=== PATIENT | male | born 1940 | race Caucasian/White ===

== ENCOUNTER 2017-04-18 21:00 | Observation (INO) | payer MEDICARE, BC ==
[2017-04-18 21:02] VITALS: BP 143/73; PULSE 69; RESP 16; TEMP 97.5; O2SAT 98
[2017-04-18 21:44] LABS: AUTOMATED NEUTROPHIL # 5.8 TH/MM3 (1.8-7.7); BASOPHIL # 0.1 TH/MM3 (0-0.2); EOSINOPHIL # 0.1 TH/MM3 (0-0.4); EOSINOPHIL % 1.5 % (0.0-4.0); HEMATOCRIT 42.9 % (39.0-51.0); HEMO FLAGS DIFF FINAL; LYMPH % 22.6 % (9.0-44.0); MEAN CELL VOLUME 87.4 FL (80.0-100.0); MEAN CORPUSCULAR HEMOGLOBIN 29.9 PG (27.0-34.0); MEAN CORPUSCULAR HGB CONC 34.2 % (32.0-36.0); MONO % 8.4 % (0.0-8.0); NEUT % 66.5 % (16.0-70.0); PLATELET COUNT 180 TH/MM3 (150-450); RED CELL DISTRIBUTION WIDTH 13.5 % (11.6-17.2); WHITE BLOOD COUNT 8.7 TH/MM3 (4.0-11.0)
[2017-04-18 21:45] VITALS: BP_SYST 129; BP_SYST 139; BP_DIAS 68; BP_DIAS 72; RESP 16; O2SAT 98
[2017-04-18] MEDS ORDERED: ASPIRIN 325 MG TAB PO ONE (21:45)
[2017-04-18] MEDS ORDERED: ATOR40TA16 PO (21:56)
[2017-04-18] MEDS ORDERED: METO25TA3 PO (21:56)
[2017-04-18] MEDS ORDERED: TERA5CAP3 PO (21:56)
[2017-04-18 22:12] LABS: ANION GAP 8 MEQ/L (5-15); BICARBONATE 26.8 MEQ/L (21.0-32.0); BLOOD UREA NITROGEN 24 MG/DL (7-18); CHLORIDE 102 MEQ/L (98-107); GLOMERULAR FILTRATION RATE 75 ML/MIN (>89); SODIUM (NA) 137 MEQ/L (136-145)
--- NOTE | 2017-04-18 22:12 | RADRPT ---
EXAM DATE/TIME: 04/18/2017 21:45 [place] COMPARISON: No previous studies available for comparison. INDICATIONS : Upper chest and neck pain. MEDICAL HISTORY : None. SURGICAL HISTORY : None. ENCOUNTER: Initial ACUITY: 2 days PAIN SCORE: 5/10 LOCATION: Bilateral chest FINDINGS: 2 AP erect portable views of the chest demonstrates the lungs to be symmetrically aerated without carla dence of mass, infiltrate or effusion. The cardiomediastinal contours are unremarkable. Osseous str uctures are intact. There is a fold right mid clavicular fracture. There are overlying electrocardiog birgit leads. CONCLUSION: No acute disease. Laz Aguilar MD on April 18, 2017 at 22:09 Board Certified Radiologist. This report was verified electronically.
[2017-04-18] MEDS ORDERED: AMLO5CAP3 PO (22:14)
--- NOTE | 2017-04-18 22:16 | PD ---
HPI Chief Complaint: Cardiac Complaint Time Seen by Provider: 22:11 Travel History International Travel<30 days: No Contact w/Intl Traveler<30days: No Traveled to known affect area: No History of Present Illness HPI 76-year-old male that presents to the ED for evaluation of jaw pain. Per patient his had left-sided jaw pain for the past day. Per patient is progressively getting worse. Patient has been taking nitros that seemed to improve the symptoms but comes back after an hour. Patient gets a headache from the nitros but otherwise he has no headache. He denies any actual chest pain. Per patient she's had symptoms like this and he follow-up with Dr. Terry who is his fork lift technician. He performed testing including echocardiogram as well as stress test that was abnormal. Patient had a CT coronary angiogram that apparently showed "blockage". Per patient he was immediately told to change his diet and stop all carbohydrates and he was started on statins as well as blood pressure medication. Patient was told that if anything changed he was to come here. Per patient this is why he is here. Per patient he doesn' t know if this is muscular or cardiac and he was told by Dr. Terry that if anything changed to come here. He denies any shortness of breath. He states compliance with his medications in his diet. Per patient he has never had any stents or heart catheters. No CABGs. No surgeries. No recent travel. No trauma. No fevers chills or sweats. No allergies to medication. Nothing seem to precipitate the symptoms. PFSH Past Medical History Diminished Hearing: No Genitourinary: Yes (BLADDER BLOCKAGES 2 YEARS AGO) Tetanus Vaccination: Unknown Influenza Vaccination: Yes Past Surgical History Abdominal Surgery: Yes (DIVERTICULUM CHILD) Appendectomy: Yes Social History Alcohol Use: Yes (occ) Tobacco Use: No Substance Use: No Allergies-Medications (Allergen,Severity, Reaction): Coded Allergies: No Known Allergies (Unverified , 04/18/17) Reported Meds & Prescriptions Reported Meds & Active Scripts Active Reported Amlodipine-Benazepril 5-20 Mg Cap 1 Cap PO DAILY Terazosin (Terazosin HCl) 5 Mg Cap 5 Mg PO HS Metoprolol Tartrate 25 Mg Tab 25 Mg PO BID Atorvastatin (Atorvastatin Calcium) 40 Mg Tab 40 Mg PO HS Review of Systems Except as stated in HPI: all other systems reviewed are Neg Physical Exam Narrative GENERAL: SKIN: Warm and dry. HEAD: Atraumatic. Normocephalic. EYES: Pupils equal and round. No scleral icterus. No injection or drainage. ENT: No nasal bleeding or discharge. Mucous membranes pink and moist. Tongue is midline. No uvula deviation. NECK: Trachea midline. No JVD. CARDIOVASCULAR: Regular rate and rhythm. No obvious murmurs, S3, S4. RESPIRATORY: No accessory muscle use. Clear to auscultation. Breath sounds equal bilaterally. GASTROINTESTINAL: Abdomen soft, non-tender, nondistended. Hepatic and splenic margins not palpable. MUSCULOSKELETAL: Extremities without clubbing, cyanosis, or edema. No obvious deformities. Full range of motion of the upper and lower extremities bilaterally. 2+ pulses bilaterally. NEUROLOGICAL: Awake and alert. No obvious cranial nerve deficits. Motor grossly within normal limits. Five out of 5 muscle strength in the arms and legs. Normal speech. PSYCHIATRIC: Appropriate mood and affect; insight and judgment normal. Data Data Last Documented VS Vital Signs Date Time Temp Pulse Resp B/P Pulse Ox O2 Delivery O2 Flow Rate FiO2 04/18/17 21:45 16 98 Room Air 04/18/17 21:45 129/68 139/72 04/18/17 21:02 97.5 69 Orders Electrocardiogram (04/18/17 21:21) Complete Blood Count With Diff (04/18/17 21:21) Basic Metabolic Panel (Bmp) (04/18/17 21:21) Ckmb (Isoenzyme) Profile (04/18/17 21:21) Troponin I (04/18/17 21:21) Iv Access Insert/Monitor (04/18/17 21:21) Chest, Single Ap (04/18/17 21:42) Ecg Monitoring (04/18/17 21:42) Bilateral Bp Monitoring (04/18/17 21:42) Iv Access Insert/Monitor (04/18/17 21:42) Oximetry (04/18/17 21:42) Aspirin (Aspirin) (04/18/17 21:45) Admit Order (Ed Use Only) (04/18/17 22:52) Nitroglycerin 2% Oint (Nitroglycerin 2% (04/18/17 23:00) Labs Laboratory Tests Test 04/18/17 21:30 White Blood Count 8.7 TH/MM3 Red Blood Count 4.90 MIL/MM3 Hemoglobin 14.7 GM/DL Hematocrit 42.9 % Mean Corpuscular Volume 87.4 FL Mean Corpuscular Hemoglobin 29.9 PG Mean Corpuscular Hemoglobin 34.2 % Concent Red Cell Distribution Width 13.5 % Platelet Count 180 TH/MM3 Mean Platelet Volume 9.5 FL Neutrophils (%) (Auto) 66.5 % Lymphocytes (%) (Auto) 22.6 % Monocytes (%) (Auto) 8.4 % Eosinophils (%) (Auto) 1.5 % Basophils (%) (Auto) 1.0 % Neutrophils # (Auto) 5.8 TH/MM3 Lymphocytes # (Auto) 2.0 TH/MM3 Monocytes # (Auto) 0.7 TH/MM3 Eosinophils # (Auto) 0.1 TH/MM3 Basophils # (Auto) 0.1 TH/MM3 CBC Comment DIFF FINAL Differential Comment Sodium Level 137 MEQ/L Potassium Level 4.0 MEQ/L Chloride Level 102 MEQ/L Carbon Dioxide Level 26.8 MEQ/L Anion Gap 8 MEQ/L Blood Urea Nitrogen 24 MG/DL Creatinine 0.97 MG/DL Estimat Glomerular Filtration 75 ML/MIN Rate Random Glucose 104 MG/DL Calcium Level 9.1 MG/DL Total Creatine Kinase 78 U/L Troponin I LESS THAN 0.02 NG/ML MDM Medical Decision Making Medical Screen Exam Complete: Yes Emergency Medical Condition: Yes Medical Record Reviewed: Yes Interpretation(s) CBC & BMP Diagram 04/18/17 21:30 Troponin and CKMB negative. Last Impressions Chest X-Ray 04/18/172141 Signed Impressions: Service Date/Time: Tuesday, April 18, 2017 21:45 - CONCLUSION: No acute disease. Laz Aguilar MD Differential Diagnosis Angina versus and STEMI versus STEMI versus gel pain versus unstable angina Narrative Course 76-year-old male that presents to the ED for evaluation of jaw pain. Patient was properly examined and was found to have signs and symptoms concerning for coronary artery disease. Patient already has a history of "blockage". Per patient he had the study done at [facility]. Unfortunately the PACs system appears to be down and I cannot access the study. This time I recommend labs and imaging. Patient is in agreement with this plan. Labs and imaging showed no sign of acute disease. Case discussed in my attending Dr. Terry who agrees with plan. She recommends admission to medicine for chest pain rule out as well as for consultation specifically to Dr. Terry to evaluate whether heart cath is needed. This was discussed with the patient and the family who is in agreement with this plan. Patient was admitted to [facility] after Wallace Muñoz agrees to admission. Procedures EKG Prior to Arrival: No Diagnosis Primary Impression: Chest pain in adult Admitting Information Admitting Physician Requests: Observation Lyndon Solis April 18, 2017 22:16
[2017-04-18 22:28] LABS: CREATINE KINASE 78 U/L (39-308)
[2017-04-18] MEDS ORDERED: NITROGLYCERIN 2% OINT 1 GM PACKET TOPICAL ONE (23:00)
[2017-04-18 23:12] VITALS: BP 114/55; PULSE 62; RESP 20; O2SAT 97
[2017-04-19 00:20] VITALS: BP 108/52; PULSE 55; RESP 20; O2SAT 99
[2017-04-19] MEDS ORDERED: SODIUM CHLORIDE 0.9% FLUSH 10 ML FLUSH IV FLUSH PRN (00:45)
[2017-04-19] MEDS ORDERED: ONDANSETRON HCL 4 MG/2 ML VIAL IVP PRN (00:45)
[2017-04-19] MEDS ORDERED: ACETAMINOPHEN 325 MG TAB PO PRN (00:45)
[2017-04-19] MEDS ORDERED: SENNOSIDES 8.6 MG TAB PO PRN (00:45)
[2017-04-19] MEDS ORDERED: NALOXONE HCL 0.4 MG/ML AMP IV PRN (00:45)
[2017-04-19 00:55] VITALS: O2SAT 98
[2017-04-19] MEDS ORDERED: HEPARIN SODIUM - SQ 10,000 UNITS/ML VIAL SQ SCH (01:00)
[2017-04-19 02:18] VITALS: BP 109/61; PULSE 59; RESP 18; TEMP 97.5; O2SAT 95
[2017-04-19 02:33] VITALS: PULSE 54
[2017-04-19] MEDS ORDERED: NITROGLYCERIN 2% OINT 1 GM PACKET TOPICAL SCH (06:00)
[2017-04-19 08:00] VITALS: BP 121/64; PULSE 69; RESP 16; TEMP 96.6; O2SAT 96
[2017-04-19 08:30] VITALS: O2SAT 95
[2017-04-19] MEDS ORDERED: ASPIRIN EC 325 MG TABEC PO SCH (09:00)
[2017-04-19] MEDS ORDERED: SODIUM CHLORIDE 0.9% FLUSH 10 ML FLUSH IV FLUSH SCH (09:00)
[2017-04-19] MEDS ORDERED: ATORVASTATIN 40 MG TAB PO SCH (09:00)
[2017-04-19] MEDS ORDERED: METOPROLOL TARTRATE 25 MG TAB PO SCH (09:00)
--- NOTE | 2017-04-19 09:12 | HHI.PR ---
Objective Objective Results - Vital Signs Date Time Temp Pulse Resp B/P Pulse Ox O2 Delivery O2 Flow Rate FiO2 04/19/17 08:00 96.6 69 16 121/64 96 04/19/17 02:33 54 04/19/17 02:18 97.5 59 18 109/61 95 04/19/17 00:55 98 04/19/17 00:20 55 20 108/52 99 Room Air 04/18/17 23:12 62 20 114/55 97 Room Air 04/18/17 21:45 16 98 Room Air 04/18/17 21:45 129/68 139/72 04/18/17 21:02 97.5 69 16 143/73 98 Room Air Result Diagram: 04/18/17212904/18/172129 Other Results Laboratory Tests Test 04/18/17 04/19/17 21:30 01:40 White Blood Count 8.7 Red Blood Count 4.90 Hemoglobin 14.7 Hematocrit 42.9 Mean Corpuscular Volume 87.4 Mean Corpuscular Hemoglobin 29.9 Mean Corpuscular Hemoglobin 34.2 Concent Red Cell Distribution Width 13.5 Platelet Count 180 Mean Platelet Volume 9.5 Neutrophils (%) (Auto) 66.5 Lymphocytes (%) (Auto) 22.6 Monocytes (%) (Auto) 8.4 Eosinophils (%) (Auto) 1.5 Basophils (%) (Auto) 1.0 Neutrophils # (Auto) 5.8 Lymphocytes # (Auto) 2.0 Monocytes # (Auto) 0.7 Eosinophils # (Auto) 0.1 Basophils # (Auto) 0.1 CBC Comment DIFF FINAL Differential Comment Sodium Level 137 Potassium Level 4.0 Chloride Level 102 Carbon Dioxide Level 26.8 Anion Gap 8 Blood Urea Nitrogen 24 Creatinine 0.97 Estimat Glomerular Filtration 75 Rate Random Glucose 104 Calcium Level 9.1 Total Creatine Kinase 78 Troponin I LESS THAN 0.02 LESS THAN 0.02 Physical Exam Physical Exam PHYSICAL EXAMINATION GENERAL: This is a well-developed, well-nourished male who appears to be in no acute distress. He is alert and awake, []. HEAD: Normocephalic without any lesion or mass noted. Facial features appear symmetric. EYES: Perrla, Normal eye movement, [] Icterus. [] Conj congestion. OROPHARYNGEAL: Oropharynx without erythema or edema. MOUTH/THROAT: Tongue midline []. Buccal mucosa is moist []. NECK: Supple. No nuchal rigidity or lymphadenopathy. Trachea midline without deviation. Thyroid not palpable, no bruits appreciated. CARDIAC: Regular rhythm, regular rate, S1 and S2 are heard. Murmur []; no gallops or rubs. LUNGS: Clear to auscultation bilaterally. [] wheeze, [] rhonchi or [] rale. No use of accessory muscles on inspiration or expiration. ABDOMEN: Soft, nontender, no organomegaly or masses. Bowel sounds are heard in all four quadrants. No rebound. No guarding. EXTREMITIES: [] edema. Pulses equal bilateral. [] cyanosis. NEUROLOGICAL: Patient mood and affect appropriate. Cranial nerves II through XII grossly intact. Muscle strength 5/5 in the upper and lower extremities bilaterally. Deep tendon reflexes are 2+ in the upper and lower extremities bilaterally. SKIN:Warm and moist PSYCH: Mood and affect appropriate A/P Assessment and Plan patient seen and examined Please refer to admission h & P for details jaw pain and shoulder pain, worse with movement. troponin and EKG neg Appreciate Cardiology input Discussed with Dr Terry in detail symptoms does not likely cardiac related ok to d/c home, medical management and outpatient follow up recommend CT C spine to r/o pathology likely arthritis, nerve impingement, but patient and son at bed aside refusing it for now. Would like to follow up with Their PCP Dr Cleaning and pursue outpatient work up. ok to d/c home discussed with patient, family at bed side, nursing staff and Dr Terry plan of care discussed with Preethi Hopkins MD April 19, 2017 09:12
--- NOTE | 2017-04-19 09:21 | MH ---
cc: AIDEE RAO DATE OF ADMISSION: 04/18/2017 DATE OF 1940 CHIEF COMPLAINT Jaw pain TRAVEL IN THE LAST 30 DAYS None HISTORY OF PRESENT ILLNESS This is a pleasant 76-year-old white male who came to the emergency room for evaluation of jaw pain that radiates down into his left shoulder. The patient states that he has had this pain for the past three months, but the pain has intensively gotten worse over the past month. He states that when he sits straight up and looks forward and does not move his neck, it does not hurt, but if he moves his head in the left or right direction, the pain does intensify and moves down into his shoulder. He states that the pain is fairly constant because he is constantly moving and it does interfere with sleep. He denies any chest pain. No shortness of breath. No recent fever, no recent antibiotic use. He did see wall worker, Dr. Terry back over the past few months and had a stress test and an echocardiogram and a CT coronary angiogram which did show blockage. He was treated medically and also was told that if the pain continued, to come back for further evaluation. The patient has no history of cardiac disease or stents. He has been very active and very healthy and was actually climbing on a roof yesterday doing some repair when the pain became unbearable. Of note, cardiology had placed him on a low carb diet. MEDICAL HISTORY 1. Mild constipation off and on for the past couple years. 2. Bladder blockages two years ago that were repaired. 3. History of diverticulum as a child. 4. Hyperlipidemia 5. Hypertension PAST SURGICAL HISTORY 1. Appendectomy 2. Repair of the bladder blockages with stenting. ALLERGIES No known allergies. MEDICATIONS 1. Amlodipine 2. Benazepril 3. Terazosin 4. Metoprolol 5. Atorvastatin SOCIAL HISTORY Occasional rare alcohol use. No tobacco, no illicit drugs. The patient is , currently lives at home with his and she is here with him at the hospital for support. REVIEW OF SYSTEMS Positives noted in the HPI, otherwise systems are negative. PHYSICAL EXAM VITAL SIGNS: temperature 96.6, pulse 69, respirations 16, blood pressure 121/64, O2 sat 96 on room air. GENERAL: A well-nourished, well-developed white male who does not look his stated age resting in his room sitting up in a chair. SKIN: [place], warm and dry. HEENT: Atraumatic, normocephalic. ALMA at 2. Mucous membranes are pink and moist. Tongue is midline. NECK: Supple. I feel no JVD and no nodules. CARDIOVASCULAR: S1-S2, no murmurs, rubs or gallops. RESPIRATORY: Essentially clear to auscultation. No wheezes, rales or rhonchi. GI: Abdomen is soft and nontender. Active bowel sounds. MUSCULOSKELETAL: He can move his extremities with purpose. He has excellent strength. NEUROLOGIC: He is alert and oriented x4, a good historian. Strength in his arms and legs are normal. His speech is normal and clear. PSYCHIATRIC: Appropriate mood and affect. DIAGNOSTIC DATA WBC count 8.7, RBC 4.9, hemoglobin 14.7, hematocrit 42.9, monocyte percentage auto is the only thing that is abnormal and it is 8.4. Diff is normal. Sodium is 137, potassium 4, chloride 102, carbon dioxide 26.8, amnion gap 8, BUN 24, creatinine 0.97, troponin is less than 0.02 x2. IMAGING STUDIES Show chest x-ray to have no acute disease. ASSESSMENT/PLAN 1. Jaw pain radiating into the shoulder, rule out cardiac event and coronary artery disease versus angina. 2. Acute kidney injury with mild dehydration. 3. Jaw pain radiating to the left shoulder possibly Musculoskeletal, rule out tendonitis or cervical degenerative disk disease. 4. History of constipation. PLAN Our plan is to rule out cardiac event. Cardiology will see him for their expert opinion. He is placed in observation. Vital signs are q. Four. Activities, out of bed with assistance. We will monitor him on telemetry, place him on a heart healthy diet. Reconcile his medications. O2 p.r.n. DVT prophylaxis with heparin. Nitroglycerin ointment was placed on him in the ER. We will monitor his blood pressure, his labs and get a CT cervical scan to rule out degenerative disk disease. The patient is full code, full aggressive care and we will follow. Dictated by DAVID Gallego MD SHANE Burroughs/NESSA /8:30 AM /9:21 AM
--- NOTE | 2017-04-19 09:47 | MB ---
cc: KIAH AG M.D. DATE OF CONSULTATION: 04/19/2017 REASON FOR CONSULTATION Known coronary artery disease and left neck pain. HISTORY OF PRESENT ILLNESS Stephen Yeung is a very pleasant 76-year-old man who I have extensively evaluated who came in with left neck pain. The patient initially saw me for pain in the left side of his jaw. I was concerned given that he had multiple risk factors including hypertension, obesity and metabolic syndrome. He had a stress test where there was no production of the jaw pain and there were some nonspecific EKG changes. A nuclear stress test did not show any major ischemia and I went one step further with a coronary CT angiogram. The coronary CT angiogram demonstrates that he has three-vessel coronary artery disease. Specifically his coronary circulation is left dominant. He has extensive atherosclerotic disease throughout the LAD with suggestion of hemodynamically significant lesions in the mid LAD. The circumflex artery shows diffuse calcified atherosclerotic plaque with some possible distal significant lesions as well. The right coronary artery was atretic with significant stenosis at the ostium and proximal segments. At that time we initiated medical therapy with aspirin, atorvastatin, beta richard and sublingual nitroglycerin. He comes in now with recurrence of pain. At this time the pain is different. It is more in the left shoulder. He can reproduce it by turning his head to the right. He can reproduce it by scrunching his left shoulder. It is also somewhat reproduced by trying to swallow. He does not have any typical exertional type symptoms. He did say his symptoms got better after nitroglycerin but on further questioning it takes five minutes after the nitro before he saw improvement, which to me did not suggest it was very responsive to nitroglycerin. I was planning to do a cardiac catheterization this morning. I have now cancelled that in view of the fact the discomfort he is having is clearly musculoskeletal. PAST MEDICAL HISTORY 1. Arthritis. 2. First-degree AV block. 3. Benign prostatic hypertrophy. 4. Diverticulosis. 5. Essential hypertension. 6. Hyperlipidemia. 7. Impetigo. 8. Metabolic syndrome with obesity. 9. Prediabetes. 10.Hypertension. 11.HDL cholesterol 40. 12.Migraine headaches. 13.Obesity. PAST SURGICAL HISTORY Tonsillectomy. MEDICATIONS 1. Amlodipine. 2. Benazepril 5/20, daily. 3. Aspirin 325, daily. 4. Metoprolol 50, b.i.d. 5. Atorvastatin 40 mg daily. 6. Ranitidine 150 mg p.r.n. 7. Saw palmetto daily. 8. Terazosin 5 mg at bedtime. ALLERGIES None known. FAMILY HISTORY Positive for myocardial infarction in maternal grandfather and maternal grandmother. SOCIAL HISTORY He drinks alcohol only occasionally. He stays physically active. He exercises routinely. He is . He has never smoked. He is retired. REVIEW OF SYSTEMS Notable for dry eyes, prior urinary symptoms improved with medications, arthritis in his right hip. PHYSICAL EXAMINATION GENERAL: An obese, very pleasant white male in no acute distress. VITAL SIGNS: Charted. HEENT: Unremarkable. NECK: No JVD. No bruits. CHEST: Clear to auscultation. CARDIAC: S1, S2. Regular rate and rhythm without murmurs or gallops. ABDOMEN: Soft, nontender. No masses or hepatosplenomegaly. EXTREMITIES: No clubbing, cyanosis or edema. Pulses are intact. EKG EKG demonstrates sinus rhythm with first-degree AV block. There are no ischemic changes. LABORATORY Troponin levels are normal. IMAGING Chest x-ray shows no acute disease. Dr. Tejeda ordered a neck CT but the patient declined, wanting to have this done as an outpatient. IMPRESSION/PLAN This is a 76-year-old man with known cardiac risk factors who we know objectively has three-vessel coronary disease based on a coronary CT angiogram. His current symptoms, however, are clearly not cardiac in origin. This strongly suggests a problem with his neck, most likely cervical arthritis or cervical stenosis. I cannot really elicit any symptoms that sound like angina and there is no objective evidence for ischemia. Therefore I recommend continuation of medical therapy and its okay for him to go home. I have given him a prescription referral to a physical therapist named Terry Mcpherson at [facility]. I have told him he should follow-up with Dr. Cleaning and probably should have some type of imaging test on his neck to rule out any odd or unexpected findings that could be causing his pain. I did explain to him that if we ever get to a point where we think he is having coronary ischemia then I think he is definitely a candidate for coronary angiography and possible revascularization, but I cannot say that there are findings that indicate we should do that at this time. All questions were answered. This was in the presence of his adopted son and , and all questions were answered. MD JIM Lea/SURAJ /9:17 AM /9:27 AM
--- NOTE | 2017-04-19 15:58 | HHI.DS ---
Discharge Summary Admission Date April 18, 2017 at 22:54 Discharge Date: April 19, 2017 Admitting Diagnosis chest pain, r/o ACS CBC/BMP: 04/18/17212904/18/172129 Significant Findings Laboratory Tests Test 04/18/17 04/19/17 21:30 01:40 Monocytes (%) (Auto) 8.4 % (0.0-8.0) Blood Urea Nitrogen 24 MG/DL (7-18) Estimat Glomerular Filtration 75 ML/MIN (>89) Rate Troponin I LESS THAN 0.02 LESS THAN 0.02 NG/ML NG/ML (0.02-0.05) (0.02-0.05) Imaging Last Impressions Chest X-Ray 04/18/172141 Signed Impressions: Service Date/Time: Tuesday, April 18, 2017 21:45 - CONCLUSION: No acute disease. Laz Aguilar MD Hospital Course seen per cardiology. jaw pain is noncardiac. pt. discharged Pt Condition on Discharge: Stable Discharge Disposition: Discharge Home Discharge Instructions DIET: Follow Instructions for: Heart Healthy Diet Activities you can perform: Regular-No Restrictions Follow up Referrals: PCP Follow-up Physical Therapy Continued Medications: Amlodipine-Benazepril (Amlodipine-Benazepril) 5-20 Mg Cap 1 CAP PO DAILY Blood Pressure Management #30 Ref 0 CAP Atorvastatin (Atorvastatin) 40 Mg Tab 40 MG PO HS Cholesterol Management #30 Ref 0 TAB Metoprolol Tartrate (Metoprolol Tartrate) 25 Mg Tab 25 MG PO BID #60 Ref 0 TAB Terazosin (Terazosin) 5 Mg Cap 5 MG PO HS #30 Ref 0 CAP Tana Zhu April 19, 2017 15:58
--- NOTE | 2017-04-19 19:27 | EKG ---
Date Performed: 04/19/2017 Time Performed: 06:15:31 PTAGE: 76 years EKG: Sinus rhythm WITH SINUS ARRHYTHMIA WITH FIRST DEGREE AV BLOCK ABNORMAL ECG Compared to prior tracing no significa nt change DOCTOR: Jaciel Walsh Interpretating Date/Time 04/19/2017 19:25:05
--- NOTE | 2017-04-19 19:36 | EKG ---
Date Performed: 04/18/2017 Time Performed: 21:21:54 PTAGE: 76 years EKG: Sinus rhythm WITH FIRST DEGREE AV BLOCK ABNORMAL ECG NO PREVIOUS TRACING DOCTOR: Jaciel Walsh Interpretating Date/Time 04/19/2017 19:35:28
== END 2017-04-19 10:57 | disposition home or self-care (01) ==
LOC: NEPE 21:00 → NEDA 22:54 → NEPHCDU 04-19 02:01
PROVIDERS: ADMIT Internal Medicine; ATTEND Internal Medicine
DX: R68.84 Jaw pain (principal); I25.10 Atherosclerotic heart disease of native coronary artery without angina pectoris; R07.9 Chest pain, unspecified; N17.9 Acute kidney failure, unspecified; E86.0 Dehydration; M19.90 Unspecified osteoarthritis, unspecified site; N40.0 Benign prostatic hyperplasia without lower urinary tract symptoms; I10 Essential (primary) hypertension; E78.5 Hyperlipidemia, unspecified; E66.9 Obesity, unspecified; Z82.49 Family history of ischemic heart disease and other diseases of the circulatory system; Z79.899 Other long term (current) drug therapy; K59.00 Constipation, unspecified; E88.81 Metabolic syndrome and other insulin resistance; I44.0 Atrioventricular block, first degree; K57.90 Diverticulosis of intestine, part unspecified, without perforation or abscess without bleeding
CPT/HCPCS: 71010; 80048; 82550; 84484; 85025; 93005; 96372; 99285; G0378; J1644

== ENCOUNTER → 2017-12-12 | Outpatient (CLI) | payer MEDICARE, BC ==
[2017-12-12 10:53] LABS: AUTOMATED NEUTROPHIL # 4.4 TH/MM3 (1.8-7.7); BASOPHIL # 0.1 TH/MM3 (0-0.2); EOSINOPHIL # 0.1 TH/MM3 (0-0.4); EOSINOPHIL % 2.1 % (0.0-4.0); HEMATOCRIT 43.9 % (39.0-51.0); HEMO FLAGS DIFF FINAL; HEMOGLOBIN 14.7 GM/DL (13.0-17.0); LYMPH % 19.8 % (9.0-44.0); LYMPHOCYTE # 1.3 TH/MM3 (1.0-4.8); MEAN CELL VOLUME 92.3 FL (80.0-100.0); MEAN CORPUSCULAR HEMOGLOBIN 30.9 PG (27.0-34.0); MEAN CORPUSCULAR HGB CONC 33.5 % (32.0-36.0); MEAN PLATELET VOLUME 9.4 FL (7.0-11.0); MONOCYTE # 0.5 TH/MM3 (0-0.9); NEUT % 69.1 % (16.0-70.0); PLATELET COUNT 157 TH/MM3 (150-450); RED BLOOD COUNT 4.76 MIL/MM3 (4.50-5.90); RED CELL DISTRIBUTION WIDTH 14.3 % (11.6-17.2); WHITE BLOOD COUNT 6.3 TH/MM3 (4.0-11.0)
[2017-12-12 11:02] LABS: APTT (PATIENT) 27.5 SEC (24.3-30.1); INTERNATIONAL NORMALIZED RATIO 1.1 RATIO; PROTHROMBIN TIME - PATIENT 11.4 SEC (9.8-11.6)
[2017-12-12 11:05] LABS: BILIRUBIN, URINE NEG (NEG); BLOOD, URINE NEG (NEG); COMMENT (UR) CULT NOT INDICATED; CULTURE IF INDICATED CULT NOT INDICATED; GLUCOSE,URINE NEG (NEG); KETONE, URINE NEG (NEG); MUCUS URINE FEW /lpf (OCC); NITRITE,URINE NEG (NEG); SQUAMOUS EPITHELIAL CELL URINE <1 /hpf (0-5); URINE COLOR YELLOW (YELLW/STRAW); URINE LEUKOCYTE ESTERASE NEG (NEG)
[2017-12-12 11:16] LABS: ALBUMIN 4.1 GM/DL (3.4-5.0); ALT (GPT) 22 U/L (12-78); ANION GAP 6 MEQ/L (5-15); AST (GOT) 11 U/L (15-37); BICARBONATE 29.4 MEQ/L (21.0-32.0); BLOOD UREA NITROGEN 17 MG/DL (7-18); CALCIUM 9.7 MG/DL (8.5-10.1); CHLORIDE 104 MEQ/L (98-107); CREATININE 0.85 MG/DL (0.60-1.30); GLOMERULAR FILTRATION RATE 87 ML/MIN (>89); GLUCOSE,FASTING 115 MG/DL (74-99); POTASSIUM 4.1 MEQ/L (3.5-5.1); SODIUM (NA) 139 MEQ/L (136-145)
[2017-12-12 11:19] LABS: ALKALINE PHOSPHATASE 83 U/L (45-117); TOTAL BILIRUBIN ADULT 0.8 MG/DL (0.2-1.0); TOTAL PROTEIN 7.4 GM/DL (6.4-8.2)
[2017-12-12 11:42] LABS: WESTERGREN SEDIMENTATION RATE 3 mm/hr (0-20)
== END ==
LOC: CPRE 09:42
DX: Z01.810 Encounter for preprocedural cardiovascular examination (principal); Z01.811 Encounter for preprocedural respiratory examination; Z01.812 Encounter for preprocedural laboratory examination; M79.609 Pain in unspecified limb; M25.50 Pain in unspecified joint; M16.11 Unilateral primary osteoarthritis, right hip; R94.31 Abnormal electrocardiogram [ECG] [EKG]; Z96.60 Presence of unspecified orthopedic joint implant
CPT/HCPCS: 36415; 71046; 80053; 81001; 85025; 85610; 85652; 85730; 93005

== ENCOUNTER 2017-12-27 06:35 | Inpatient (IN) | payer MEDICARE, BC ==
[~2017-12-27] VITALS: Ht 193 cm; Wt 100.5 kg
[~2017-12-27 06:35] MED LIST: AMLO5CAP3 PO; ASPI1TAB57 PO; ATOR40TA16 PO; METO25TA3 PO; SAW500CA PO; TERA5CAP3 PO
[2017-12-27] MEDS ORDERED: SODIUM CHLORID 0.9% 500 ML IV PRN (07:15)
[2017-12-27] MEDS ORDERED: LACTATED RINGER'S 1000 ML IV PRN (07:15)
[2017-12-27] MEDS ORDERED: VANCOMYCIN 1000 MG/NS 250 ML (for <70 kg) IV SCH ×2 (07:15)
[2017-12-27] MEDS ORDERED: METOPROLOL TARTRATE 25 MG TAB PO PRN (07:15)
[2017-12-27] MEDS ORDERED: POVIDONE IODINE 7.5% SCRUB 118 ML BOTTLE TOPICAL SCH (07:15)
[2017-12-27] MEDS ORDERED: ceFAZolin 2 GM PREMIX 50 ML IV SCH (07:15)
[2017-12-27] MEDS ORDERED: POVIDONE IODINE 5% (ANTISEPSIS KIT) 4 APPLICATIONS EACH NARE PRN (07:15)
[2017-12-27] MEDS ORDERED: CHLORHEXIDINE GLUCONATE 2 % 1 PACK (2 CLOTHS) TOPICAL PRN (07:15)
[2017-12-27] MEDS ORDERED: DEXAMETHASONE SOD PHOS 20 MG/5 ML VIAL IV PUSH SCH (07:30)
[2017-12-27] MEDS ORDERED: VANCOMYCIN 1 GM/200 ML INJ 200 ML IV ONE (07:51)
[2017-12-27] MEDS ORDERED: AMLO5CAP3 PO (09:23)
[2017-12-27] MEDS ORDERED: TRANEXAMIC ACID INJ 1,005 MG in SODIUM CHLORIDE 0.9% INJ 100 ML IV SCH ×2 (10:00→15:00)
[2017-12-27] MEDS ORDERED: GENTAMICIN SULFATE 80 MG/2 ML VIAL ONE (10:37)
[2017-12-27] MEDS ORDERED: PROPOFOL 500 MG/50 ML INJ 50 ML ONE (10:48)
[2017-12-27] MEDS ORDERED: EXPAREL PERI-ARTICULAR INJECTION (TOTAL VOL. 60 ML) P-ARTICULR SCH ×2 (11:30)
--- NOTE | 2017-12-27 13:17 | PD.OP ---
cc: Antione Sampson MD Operative Report Date of Surgery: Dec 27, 2017 Preoperative Diagnosis: Right hip severe osteoarthritis Postoperative Diagnosis: Same Procedure: Right total hip arthroplasty Anesthesia: Spinal Surgeon: Antione Sampson Hospice Art Therapist(s): DAVID Galdamez The surgical procedure was assisted by my Advanced Registered Nurse Practitioner. My ENTERTAINER OR VARIETY ARTIST presence was necessary throughout this case for the manipulation and positioning of the surgical extremity. My ENTERTAINER OR VARIETY ARTIST was assisting me throughout the duration of this procedure. The skill set of an Advance Registered Nurse Practitioner was medically necessary to complete this procedure. During the surgical case, the plating technician was working at the back table and the Advance Registered Nurse Practitioner was directly assisting me. Operation and Findings: IMPLANT DESCRIPTION: 1. [place] Gription Cup, acetabular size 60. 2. [place] AltrX polyethylene, neutral. 4. [place] femoral stem size 13, no collar, standard offset. 5. Femoral head/neck metal, 36, +1.5. ESTIMATED BLOOD LOSS: 300 cc. JUSTIFICATION FOR PROCEDURE: The patient has end-stage osteoarthritis to the hip. There is an attached conservative measures pathway form in the chart that describes the nonoperative measures that were undertaken prior to consideration of surgical management. The patient understood the risks and benefits of surgical management. See my office notes for further details. PROCEDURE: The patient was brought back to the operative theatre. Adequate anesthesia was obtained. The patient received intravenous vancomycin and Ancef. The patient was carefully placed on the operative table. The lower extremity was prepped and draped in the usual sterile fashion. Fluoroscopic images were obtained. We made a standard anterior incision over the hip. We dissected through the TFL fascia, exposing the anterior capsule. Arthrotomy was performed in a T-shaped fashion. The capsule was tagged with a #2 FiberWire. End-stage arthritis was identified. Osteotomy was performed through the femoral neck exposing the acetabulum. Remnants of the labrum were resected and osteophytes were removed. We sequentially reamed the acetabulum. We trialed the hip and placed the final cup into position. This was done under fluoroscopic guidance to obtain the appropriate inclination and anteversion. A manhole cover was placed into the acetabular component. We then placed the final polyethylene into position and confirmed that it was well seated. Capsular attachments on the calcar and the inner aspect of the greater trochanter were resected. On the proximal aspect of the femur we used a rongeur , box osteotome, canal finder, sequential broaches and lateralizing rasp. We calcar planed the proximal femur. Then thoroughly irrigated the wound. We trialed the hip with the appropriate size stem. We placed the final stem in to position and trialed again. The hip was stable while it was externally rotated 70 degrees when the leg was lowered to the floor. The final head was applied, and final fluoroscopic images were obtained. The wound was thoroughly irrigated again. Interarticular injection of liposomal bupivacaine was given. The capsule was closed with #2 FiberWire and #1 Vicryl. The deep fascia was closed with a #2 Stratafix, followed by 2-0 Vicryl in the skin and Dermabond dressing. Postop plan is to weight-bear as tolerated. DVT prophylaxis will be performed with Tsering, CLARI winston, early mobilization, and Lovenox followed by aspirin. Antione Sampson MD Dec 27, 2017 13:17
[2017-12-27] MEDS ORDERED: DO NOT ADM ANY ANTICOAGULANT DRUGS PRN (13:44)
[2017-12-27] MEDS ORDERED: MIDAZOLAM HCL 2 MG/2 ML VIAL ONE (13:48)
--- NOTE | 2017-12-27 13:51 | HHI.DCPOC ---
Discharge Care Plan Diagnosis: (1) Osteoarthritis of right hip (2) Status post total hip replacement, right Your Health Problems Are: Difficulty with ADL Goals to Promote Your Health * To prevent worsening of your condition and complications * To maintain your health at the optimal level Directions to Meet Your Goals Take your medications as prescribed Follow your dietary instruction Follow activity as directed Keep your appointments as scheduled Take your immunizations and boosters as scheduled If your symptoms worsen call your PCP, if no PCP go to Urgent Care Center or Emergency Room Smoking is Dangerous to Your Health. Avoid second hand smoke Call the 24-hour hour crisis hotline for domestic abuse at Anders Medrano Dec 27, 2017 13:51
--- NOTE | 2017-12-27 13:52 | HHI.FF ---
Face to Face Verification Diagnosis: (1) Status post total hip replacement, right (2) Osteoarthritis of right hip Physical Therapy Gait training, Transfer training, bed to chair Hip: Total hip Right LE Weight Bearing: WB as tolerated Right LE Range of Motion: Active ROM Nursing Nursing: Jennifer alvarez Dressing Changes: Do not change dressing Additional Instructions First dressing change in the office I have seen patient Stephen Izaguirre on 12/27/17. My clinical findings support the need for the requested home health care services because: Limited ability to care for self High risk of falls I certify that my clinical findings support that this patient is homebound because: Post-op weakness Unsteady gait/balance Anders Medrano Dec 27, 2017 13:52
[2017-12-27] MEDS ORDERED: WALKER WHEELS/F1 MIS (13:54)
[2017-12-27] MEDS ORDERED: COMMODE 3-IN-11 MIS (13:54)
[2017-12-27] MEDS ORDERED: *morphine SULFATE 4 MG/ML PERIprocedure ONLY ONE (14:07)
[2017-12-27] MEDS ORDERED: ALUMINUM/MAGNESIUM/SIMETH 30 ML CUP PO PRN (14:15)
[2017-12-27] MEDS ORDERED: ACETAMINOPHEN/HYDROcodone 325 MG/5 MG TAB PO PRN (14:15)
[2017-12-27] MEDS ORDERED: diphenhydrAMINE HCL 50 MG/ML VIAL IV PUSH PRN (14:15)
[2017-12-27] MEDS ORDERED: NALOXONE HCL 0.4 MG/ML AMP IV PUSH PRN (14:15)
[2017-12-27] MEDS ORDERED: MORPHINE SULFATE 2 MG/ML INJ IV PUSH PRN (14:15)
--- NOTE | 2017-12-27 14:20 | RADRPT ---
EXAM DATE/TIME: 12/27/2017 11:58 [facility] COMPARISON: No previous studies available for comparison. INDICATIONS : Right total hip replacement. MEDICAL HISTORY : None. SURGICAL HISTORY : None. ENCOUNTER: Initial ACUITY: 1 day PAIN SCORE: Non-responsive. LOCATION: Right hip CONCLUSION: Fluoroscopic images during right hip arthroplasty. Luis Miguel Kauffman MD on December 27, 2017 at 14:17 Board Certified Radiologist. This report was verified electronically.
[2017-12-27] MEDS ORDERED: MAGNESIUM HYDROXIDE SUSP 30 ML CUP PO PRN (14:30)
[2017-12-27] MEDS ORDERED: ONDANSETRON HCL 4 MG/2 ML VIAL IVP PRN (14:30)
[2017-12-27] MEDS ORDERED: BISACODYL 10 MG SUPP RECTAL PRN (14:30)
[2017-12-27] MEDS ORDERED: Post-op Orders (for Pharmacy) XX ONE (15:00)
[2017-12-27] MEDS: SODIUM CHLOR 0.9% 1000 ML INJ 1,000 ML IV SCH ×2 (15:25→20:27)
--- NOTE | 2017-12-27 15:42 | RADRPT ---
EXAM DATE/TIME: 12/27/2017 13:53 [facility] COMPARISON: No previous studies available for comparison. INDICATIONS : Post op right total hip replacement. MEDICAL HISTORY : None. SURGICAL HISTORY : None. ENCOUNTER: Initial ACUITY: 1 day PAIN SCORE: 5/10 LOCATION: Right Hip FINDINGS: AP and crosstable lateral views of the right hip were obtained as well as an AP view the pelvis. The patient is status post right hip arthroplasty. The femoral and acetabular components are intact and i n normal alignment. There is lateral soft tissue swelling and gas. Degenerative changes are noted in the left hip with sclerosis and spurring. There are degenerative disc changes in the lower lumbar spi ne. CONCLUSION: Expected postoperative changes status post right hip arthroplasty. Laz Aguilar MD on December 27, 2017 at 15:39 Board Certified Radiologist. This report was verified electronically.
[2017-12-27 16:34] VITALS: BP 140/70; PULSE 83; RESP 18; TEMP 96; O2SAT 96
[2017-12-27] MEDS: ACETAMINOPHEN/HYDROcodone 325 MG/5 MG TAB PO PRN (16:46)
[2017-12-27 20:09] VITALS: BP 162/80; PULSE 79; RESP 18; TEMP 95.7; O2SAT 96
[2017-12-27] MEDS: METOPROLOL TARTRATE 25 MG TAB PO SCH (20:22)
[2017-12-27] MEDS ORDERED: TERAZOSIN HCL 5 MG CAP PO SCH (21:00)
[2017-12-27] MEDS ORDERED: ATORVASTATIN 40 MG TAB PO SCH (21:00)
[2017-12-27] MEDS ORDERED: ZOLPIDEM TARTRATE 5 MG TAB PO PRN (21:00)
[2017-12-27] MEDS ORDERED: amLODIPine BESYLATE 5 MG TAB PO SCH (21:00)
[2017-12-27] MEDS ORDERED: LISINOPRIL 20 MG TAB PO SCH (21:00)
[2017-12-28 01:23] VITALS: BP 132/67; PULSE 80; RESP 18; TEMP 95.5; O2SAT 95
[2017-12-28 04:26] LABS: HEMATOCRIT 36.2 % (39.0-51.0); HEMOGLOBIN 12.3 GM/DL (13.0-17.0); MEAN CELL VOLUME 89.4 FL (80.0-100.0); MEAN CORPUSCULAR HEMOGLOBIN 30.5 PG (27.0-34.0); MEAN CORPUSCULAR HGB CONC 34.1 % (32.0-36.0); MEAN PLATELET VOLUME 9.2 FL (7.0-11.0); PLATELET COUNT 149 TH/MM3 (150-450); RED BLOOD COUNT 4.05 MIL/MM3 (4.50-5.90); RED CELL DISTRIBUTION WIDTH 13.9 % (11.6-17.2); WHITE BLOOD COUNT 11.8 TH/MM3 (4.0-11.0)
[2017-12-28 04:41] VITALS: BP 105/61; PULSE 81; RESP 18; TEMP 95.4; O2SAT 94
[2017-12-28] MEDS: SODIUM CHLOR 0.9% 1000 ML INJ 1,000 ML IV SCH (04:41)
[2017-12-28] MEDS ORDERED: DEXAMETHASONE SOD PHOS 20 MG/5 ML VIAL IV ONE (07:45)
[2017-12-28 07:49] VITALS: BP 119/63; PULSE 77; RESP 16; TEMP 97.9; O2SAT 97
[2017-12-28] MEDS: METOPROLOL TARTRATE 25 MG TAB PO SCH (09:51)
[2017-12-28 11:34] VITALS: BP 104/52; PULSE 76; RESP 16; TEMP 97.3; O2SAT 98
[2017-12-28] MEDS ORDERED: ENOXAPARIN SODIUM 40 MG/0.4 ML SYRINGE SQ SCH (12:00)
[2017-12-28] MEDS: ACETAMINOPHEN/HYDROcodone 325 MG/5 MG TAB PO PRN (12:10)
--- NOTE | 2017-12-28 12:53 | PD.ORT.PN ---
Subjective Post Op Day #: 1 Subjective Remarks Patient is OOB in chair with minimal pain to the right hip. Patient has been ambulatory and states he is ready for discharge home with home health. Objective Vitals Vital Signs Date Time Temp Pulse Resp B/P (MAP) Pulse Ox O2 Delivery O2 Flow Rate FiO2 12/28/17 11:34 97.3 76 16 104/52 (69) 98 12/28/17 07:49 97.9 77 16 119/63 (81) 97 12/28/17 04:41 95.4 81 18 105/61 (76) 94 12/28/17 01:23 95.5 80 18 132/67 (88) 95 12/27/17 20:09 95.7 79 18 162/80 (107) 96 12/27/17 16:34 96.0 83 18 140/70 (93) 96 12/27/17 16:00 68 17 139/63 (88) 97 Room Air 12/27/17 15:30 66 18 134/68 (90) 97 Room Air 12/27/17 14:45 98.2 69 18 140/61 (87) 98 Room Air 12/27/17 14:30 66 17 140/67 (91) 98 Room Air 12/27/17 14:15 71 16 141/67 (91) 98 Room Air 12/27/17 14:00 67 15 133/62 (85) 99 Nasal Cannula 2 12/27/17 13:45 72 14 128/63 (84) 98 Nasal Cannula 2 12/27/17 13:40 97.3 70 14 112/59 (76) 97 Nasal Cannula 2 I/O 12/27/17 12/27/17 12/27/17 12/28/17 12/28/17 12/28/17 07:00 15:00 23:00 07:00 15:00 23:00 Intake Total 1700 ml 100 ml 1200 ml Output Total 200 ml 500 ml Balance 1500 ml 100 ml 700 ml Intake IV Total 1700 ml 100 ml 1200 ml Output Urine Total 500 ml Estimated Blood Loss 200 ml # Voids 2 1 Result Diagram: 12/28/17 0340 Imaging Last 24 hours Impressions Hip and Pelvis X-Ray 12/27/17 1314 Signed Impressions: Service Date/Time: Wednesday, December 27, 2017 13:53 - CONCLUSION: Expected postoperative changes status post right hip arthroplasty. Laz Aguilar MD Procedures Right EMMANUEL Objective Remarks The patient's dressing is C/D/I. EHL/TA/G intact. 2+ pedal pulse. Calf is soft and nontender. + SILT. Assessment & Plan Ortho Post Op Day #: 1 Problem List: Assessment and Plan POD #1: Right EMMANUEL 1. WBAT RLE 2. Lovenox followed by ASA for DVT prophylaxis 3. Ice to the right hip PRN 4. Stable for discharge home with home health today 5. F/U in the office with Dr. Sampson and DAVID Chicas as previously scheduled. Anders Medrano Dec 28, 2017 12:53
--- NOTE | 2017-12-28 18:06 | HHI.DS ---
Discharge Summary Admission Date Dec 27, 2017 at 06:35 Discharge Date: Dec 28, 2017 Admitting Diagnosis OA of the right hip Status post total hip replacement, right Diagnosis: (1) Osteoarthritis of right hip ICD Codes: M16.11 - Unilateral primary osteoarthritis, right hip (2) Status post total hip replacement, right ICD Codes: Z96.641 - Presence of right artificial hip joint Procedures Right EMMANUEL Brief History This is a 77 year old male patient with severe OA of the right hip. CBC/BMP: 12/28/17 0340 Significant Findings Laboratory Tests Test 12/28/17 03:40 White Blood Count 11.8 TH/MM3 (4.0-11.0) Red Blood Count 4.05 MIL/MM3 (4.50-5.90) Hemoglobin 12.3 GM/DL (13.0-17.0) Hematocrit 36.2 % (39.0-51.0) Platelet Count 149 TH/MM3 (150-450) PE at Discharge The patient's dressing is C/D/I. EHL/TA/G intact. 2+ pedal pulse. Calf is soft and nontender. + SILT. Hospital Course The patient was admitted to the hospital for severe OA of the right hip to have a right EMMANUEL. The patient's surgery went well without complication. The patient is WBAT. The patient is on Lovenox followed by ASA for DVT prophylaxis. The patient is on a regular diet. The patient was discharged home with home health and will f/u in the office with Dr. Sampson or DAVID Chicas as previously scheduled. Pt Condition on Discharge: Stable Discharge Disposition: Disch w/ Home Health Serv Discharge Instructions Diet Instructions: As Tolerated, No Restrictions Activities You Can Perform: Weight Bearing as [place] Activities to Avoid: Strenuous Activity Follow up Referrals: Orthopedics with Antione Sampson MD New Medications: Commode 3-in-1 (Commode 3-in-1) 1 Mis Mis EA .XX DIRECTED, #1 0 Refills Walker with Front Wheels (Walker with Front Wheels) 1 Mis Mis EA .XX DIRECTED, #1 0 Refills Continued Medications: Amlodipine Besylate/Benazepril (Amlodipine-Benazepril 5-20 mg) 5 Mg-20 Mg Capsule 1 CAP PO HS Atorvastatin (Atorvastatin) 40 Mg Tab 40 MG PO HS for Cholesterol Management, #30 TAB 0 Refills Metoprolol Tartrate (Metoprolol Tartrate) 25 Mg Tab 25 MG PO BID, #60 TAB 0 Refills Terazosin (Terazosin) 5 Mg Cap 5 MG PO HS, #30 CAP 0 Refills Discontinued Medications: Aspirin DR (Aspirin 81) 81 Mg Tabdr 81 MG PO DAILY, TAB 0 Refills Saw [place] (Saw [place]) 500 Mg Capsule 1 CAP PO DAILY Anders Medrano Dec 28, 2017 18:06
--- NOTE | 2017-12-28 18:11 | HHI.PR ---
Addendum To [facility] Progress Not Reason for addendum: Additonal documentation (patient seen this morning prior to discharge. Patient being discharged. Reviewed medical conditions would appear to be stable. No charge.) Gato Pete MD Dec 28, 2017 18:11
[2017-12-28] MEDS ORDERED: MULTIVITAMINS/MINERALS THERAPEUTIC TAB PO SCH (21:00)
[2017-12-28] MEDS ORDERED: DOCUSATE SODIUM 100 MG CAP PO SCH (21:00)
== END 2017-12-28 14:27 | disposition home health service (06) | DRG 470 ==
LOC: HSDI 06:35 → N06A 16:38
PROVIDERS: ADMIT Orthopaedic Surgery; ATTEND Orthopaedic Surgery
PROC: 0SR902A Replacement of Right Hip Joint with Metal on Polyethylene Synthetic Substitute, Uncemented, Open Approach (ICD-10-PCS; principal; 2017-12-27 11:05)
DX: M16.11 Unilateral primary osteoarthritis, right hip (principal); I10 Essential (primary) hypertension; E78.5 Hyperlipidemia, unspecified; I25.10 Atherosclerotic heart disease of native coronary artery without angina pectoris; K21.9 Gastro-esophageal reflux disease without esophagitis
CPT/HCPCS: 73502; 76000; 85027; 86850; 86900; 86901; 94150; C1776; C9290; J0690; J1100; J1580; J1650; J2250; J2270; J3370; J7030; J7050; J7120

== ENCOUNTER 2017-12-31 18:43 | Emergency (ER) | payer MEDICARE, BC ==
[~2017-12-31 18:43] MED LIST changes: -ASPI1TAB57 PO; +COMMODE 3-IN-11 MIS; -SAW500CA PO; +WALKER WHEELS/F1 MIS
[2017-12-31 18:44] VITALS: BP 160/74; PULSE 114; RESP 16; TEMP 98.4; O2SAT 96
--- NOTE | 2017-12-31 19:16 | PD ---
HPI Chief Complaint: Complaint Time Seen by Provider: 19:07 Travel History International Travel<30 days: No Contact w/Intl Traveler<30days: No Traveled to known affect area: No History of Present Illness HPI 77-year-old male here for evaluation of urinary retention. On 12/27/17 the patient had right hip replacement by Dr. Sampson. He states that for the last 2 days he has been having difficulty urinating, only urinating a small amount at a time. He has suprapubic pressure. He has history of urinary retention in the past requiring a catheter and reports that he has an enlarged prostate. No fevers or chills. No back pain or flank pain. 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) High Cholesterol: No Chemotherapy: No Chest Pain: No Congestive Heart Failure: No COPD: No Cerebrovascular Accident: No Diabetes: No Diminished Hearing: No Endocrine: No Gastrointestinal Disorders: Yes GERD: Yes Genitourinary: No Hepatitis: No Hiatal Hernia: No Hypertension: Yes Immune Disorder: No Implanted Vascular Access Dvce: Yes Kidney Stones: No Musculoskeletal: Yes (R COLLAR BONE, R ANKLE, B RIBS, B HAND FX) Neurologic: Yes (MIGRAINES) Psychiatric: No Reproductive: No Respiratory: No Migraines: Yes Radiation Therapy: No Renal Failure: No Seizures: No Sickle Cell Disease: No Thyroid Disease: No Ulcer: No Tetanus Vaccination: < 5 Years Influenza Vaccination: Yes Past Surgical History Abdominal Surgery: Yes (DIVERTICULUM CHILD, APPENDECTOMY) AICD: No Appendectomy: Yes Arteriovenous Shunt: No Cardiac Surgery: No Ear Surgery: No Endocrine Surgery: No Eye Surgery: No Genitourinary Surgery: No Gynecologic Surgery: No Insulin Pump: No Joint Replacement: Yes (RIGHT HIP) Oral Surgery: Yes (TONSILLECTOMY) Pacemaker: No Thoracic Surgery: No Other Surgery: Yes Social History Alcohol Use: Yes (occ) Tobacco Use: No Substance Use: No Allergies-Medications (Allergen,Severity, Reaction): Coded Allergies: No Known Allergies (Unverified Allergy, Unknown, 12/27/17) Reported Meds & Prescriptions Reported Meds & Active Scripts Active Walker with Front Wheels (Device) 1 Mis Mis Ea .XX DIRECTED Commode 3-in-1 (Device) 1 Mis Mis Ea .XX DIRECTED Reported Amlodipine-Benazepril 5-20 mg (Amlodipine Besylate/Benazepril) 5 Mg-20 Mg Capsule 1 Cap PO HS Terazosin (Terazosin HCl) 5 Mg Cap 5 Mg PO HS Metoprolol Tartrate 25 Mg Tab 25 Mg PO BID Atorvastatin (Atorvastatin Calcium) 40 Mg Tab 40 Mg PO HS Review of Systems Except as stated in HPI: all other systems reviewed are Neg Physical Exam Narrative GENERAL: Well-developed, well-nourished, pleasant, comfortable, no apparent distress. SKIN: Focused skin assessment warm/dry. Right hip with dressing laterally that is clean, dry, intact with moderate surrounding ecchymosis, no erythema or warmth. HEAD: Atraumatic. Normocephalic. EYES: Pupils equal and round. No scleral icterus. No injection or drainage. ENT: Mucous membranes pink and moist. CARDIOVASCULAR: Regular rate and rhythm. No murmur appreciated. RESPIRATORY: No accessory muscle use. Clear to auscultation. Breath sounds equal bilaterally. GASTROINTESTINAL: Abdomen soft, nondistended. Mild suprapubic tenderness. No peritoneal signs. Rest of abdomen is soft and nontender. MUSCULOSKELETAL: No obvious deformities. Skin exam as above. Mild right thigh tenderness and edema. All compartments in the right thigh are supple. NEUROLOGICAL: Awake and alert. No obvious cranial nerve deficits. Motor grossly within normal limits. Normal speech. PSYCHIATRIC: Appropriate mood and affect; insight and judgment normal. Data Data Last Documented VS Vital Signs Date Time Temp Pulse Resp B/P (MAP) Pulse Ox O2 Delivery O2 Flow Rate FiO2 12/31/17 19:00 95 18 12/31/17 18:44 98.4 160/74 (102) 96 Orders Orders Urinary Catheter Insert/Apply (12/31/17 19:16) Tamsulosin (Flomax) (12/31/17 19:30) Bag, Leg 32oz Sterile Large Ea (12/31/17 19:30) MDM Medical Decision Making Medical Screen Exam Complete: Yes Emergency Medical Condition: Yes Medical Record Reviewed: Yes Differential Diagnosis Urinary retention Narrative Course Bedside transabdominal ultrasound shows large/full bladder. Goode catheter placed with over 1200 cc of clear/red tinged urine. Patient experienced immediate relief of suprapubic pressure. States that he has a urologist and will follow-up with him this week. He will be started on Flomax. Procedures Procedure Narrative Bedside transabdominal ultrasound: Using the curvilinear ultrasound probe, the bladder was evaluated and shows that it is very distended. Diagnosis Primary Impression: Urinary retention Referrals: Urologist 3 days Additional Instructions: Follow-up with your urologist this week. Return to the emergency department for worsening symptoms or any other concerns. Scripts Tamsulosin (Flomax) 0.4 Mg Cap 0.4 MG PO HS for Manage Prostate Problems, #30 CAP 0 Refills Prov: Natanael Reddy MD 12/31/17 Disposition: 01 DISCHARGE HOME Condition: Stable Natanael Reddy MD Dec 31, 2017 19:16
[2017-12-31] MEDS ORDERED: TAMSULOSIN HCL 0.4 MG CAP PO ONE (19:30)
[2017-12-31] MEDS ORDERED: TAMS5CAP PO (19:33)
== END 2017-12-31 20:10 | disposition home or self-care (01) ==
LOC: NEPE 18:43
DX: R33.9 Retention of urine, unspecified (principal); M19.90 Unspecified osteoarthritis, unspecified site; K21.9 Gastro-esophageal reflux disease without esophagitis; I10 Essential (primary) hypertension; Z79.899 Other long term (current) drug therapy
CPT/HCPCS: 51702